=== PATIENT | female | born 2000 | race Caucasian/White ===

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

== ENCOUNTER 2022-09-06 08:13 | Observation (INO) ==
[2022-09-06] MEDS ORDERED: KETOROLAC TROMETHAMINE 15 MG/ML VIAL IV STA (09:50)
[2022-09-06] MEDS ORDERED: ONDANSETRON INJ 2 MG/ML 2 ML VIAL IV STA (09:50)
[2022-09-06] MEDS ORDERED: SODIUM CHLORIDE 0.9% 1000ML 1,000 ML IV STA (09:50)
--- NOTE | 2022-09-06 10:24 | Emergency Department Note ---
History of Present Illness General Chief complaint: Vaginal Pain Stated complaint: IUD DISLODGED Time Seen by Provider: 09/06/22 09:36 History of Present Illness Maximum Pain Intensity: 7 22 year old female who presents to ED today for evaluation of pelvic pain. Patient states this morning she began experiencing sudden lower abdominal pain, right side worse than left, with radiation into her back. She went to the bathroom when her pain started and became very pale, weak, and sweaty feeling like she was going to pass out. She denies syncopal episode. She states the severe pain lasted for about 30 minutes. It has since improved but is still present. She describes the pain as a stabbing. She states she is currently on her period which started yesterday and notes while in bathroom this morning passing multiple quarter size blood clots. This is not normal for her. She is on the Paraguard for the last 2 years. She denies previous complications with it. She gets her period monthly and was on time this month. She reports a history of ovarian cyst when she was younger. She is sexually active. She denies associated fever/chills, n/v, chest pain, SOB, diarrhea/constipation, hematochezia, melena, urinary symptoms. Denies history of kidney stones, gallbladder disease, IBD, diverticulosis. She has never had any abdominal surgeries, she still has her appendix. Home Medications Medication Instructions Recorded Confirmed Type albuterol sulfate 90 mcg/actuation 2 puff inhalation Q4 PRN Shortness 02/26/21 09/06/22 History aerosol inhaler Of Breath Or Wheezing montelukast 10 mg tablet 10 mg PO HS 02/26/21 09/06/22 History omalizumab 75 mg/0.5 mL 75 mg subcut . EVERY 14 DAYS 02/26/21 09/06/22 History subcutaneous syringe (Xolair) sertraline 50 mg tablet (Zoloft) 50 mg PO HS 02/26/21 09/06/22 History fexofenadine 60 mg tablet 60 mg PO QAM 03/24/21 09/06/22 History omalizumab 150 mg/mL subcutaneous 300 mg subcut . EVERY 14 DAYS 09/06/22 09/06/22 History syringe (Xolair) Allergies Allergy/AdvReac Type Severity Reaction Status Date / Time cat dander Allergy Intermediate Sneezing Verified 06/03/21 10:17 dog dander Allergy Intermediate Sneezing Verified 06/03/21 10:17 mold Allergy Intermediate Sneezing Verified 06/03/21 10:17 tree and shrub pollen Allergy Intermediate Sneezing Verified 06/03/21 10:17 latex Allergy Mild Rash and Verified 06/03/21 10:17 swelling at site Past Med/Surg History Medical History (Updated 09/06/22 @ 15:12 by Alicia Weston DO) Acute appendicitis Allergy-induced asthma inhaler prn Peritonsillar cellulitis Surgical History (Updated 09/06/22 @ 16:00 by Alicia Weston DO) History of colonoscopy History of wisdom tooth extraction Hx of tonsillectomy Family History Other Family history non-contributory No family history of adverse response to anesthesia Social History Smoking Status: Never smoker Second Hand Exposure: No; Hx Alcohol Use: Yes (rarely) Hx Substance Use: No Preferred Language: Tuvaluan Communication Ability: Effective Telephoner Required: No Beliefs That Will Affect Care: None Current Living Situation: Other Current Living Situation Comment: lives at school with roommate Feels Safe at Home: Yes Assistive Devices: None Physical Exam Vital Signs Vital Signs - 24 hr 09/06/22 08:25 09/06/22 10:12 09/06/22 12:25 Temperature 36.6 C Temperature Source Temporal Artery Scan Pulse Rate 66 Pulse Rate [Apical] Pulse Rate [Finger] 65 Pulse Rhythm [Apical] Respiratory Rate 20 20 Respiratory Effort / Characteristics Non-Labored Non-Labored Spontaneous Respiratory Depth Normal Normal Respiratory Pattern Blood Pressure 112/67 Blood Pressure [Left Arm] 118/57 L Blood Pressure Mean 82 Blood Pressure Mean [Left Arm] 77 Pulse Oximetry 100 98 99 Oxygen Delivery Method Room Air Room Air Room Air Sepsis Recent Fever Within 48 Hours No Sepsis New/Unexplained Change in Mental Status N/A Sepsis Action Taken by Nursing No Action Required 09/06/22 12:25 09/06/22 13:24 09/06/22 15:07 Temperature Temperature Source Pulse Rate Pulse Rate [Apical] Pulse Rate [Finger] 78 83 68 Pulse Rhythm [Apical] Respiratory Rate 18 18 18 Respiratory Effort / Characteristics Non-Labored Non-Labored Non-Labored Respiratory Depth Normal Normal Normal Respiratory Pattern Regular Regular Regular Blood Pressure Blood Pressure [Left Arm] 97/56 L 114/67 118/68 Blood Pressure Mean Blood Pressure Mean [Left Arm] 69 82 84 Pulse Oximetry 98 99 96 Oxygen Delivery Method Room Air Room Air Room Air Sepsis Recent Fever Within 48 Hours Sepsis New/Unexplained Change in Mental Status Sepsis Action Taken by Nursing 09/06/22 16:14 Temperature 36.8 C Temperature Source Oral Pulse Rate Pulse Rate [Apical] 71 Pulse Rate [Finger] Pulse Rhythm [Apical] Regular Respiratory Rate 16 Respiratory Effort / Characteristics Non-Labored Spontaneous Respiratory Depth Normal Respiratory Pattern Regular Blood Pressure Blood Pressure [Left Arm] 130/65 Blood Pressure Mean Blood Pressure Mean [Left Arm] 86 Pulse Oximetry 99 Oxygen Delivery Method Room Air Sepsis Recent Fever Within 48 Hours Sepsis New/Unexplained Change in Mental Status Sepsis Action Taken by Nursing Constitutional: alert and oriented x3. no acute distress. Respiratory: lungs are clear to auscultation without wheezes, rhonchi, or rales bilaterally. equal chest rise. normal respiratory effort, no accessory muscle use. Cardiovascular: normal heart sounds without murmur. regular rate and rhythm. GI: abdomen is soft, nondistended. Diffuse pelvic tenderness, R >L. nl bowel sounds present throughout. No palpable masses. No rebound tenderness or guarding. No CVA tenderness : Vulva normal appearing without lesions or rashes. Cervix within normal limits, normal vaginal discharge noted without foul odor. No cervical motion tenderness. Bimanual exam normal uterus/ovaries without palpable masses. Psych:appropriate mood and affect. Course Administered Medications Discontinued Medications Sodium Chloride (Nss 1000ml) 1,000 mls @ 999 mls/hr IV .Q1H1M STA Stop: 09/06/22 10:50 Last Infusion: 09/06/22 11:16 Dose: 0 mls/hr Documented By: Admin: 09/06/22 10:07 Dose: 999 mls/hr Documented By: DIAN Cefoxitin Sodium (Mefoxin) 2,000 mg in 60 mls @ 100 mls/hr IV NOW STA Stop: 09/06/22 15:32 Last Infusion: 09/06/22 15:45 Dose: 0 mls/hr Documented By: Admin: 09/06/22 15:07 Dose: 100 mls/hr Documented By: SHERWIN Ioversol (Optiray 350 100ml) 87 ml IV ONCE ONE Stop: 09/06/22 13:18 Last Admin: 09/06/22 13:18 Dose: 87 ml Documented By: GHAZALA Ketorolac Tromethamine (Ketorolac Tromethamine 15 Mg/Ml Vial) 15 mg IV NOW STA Stop: 09/06/22 09:51 Last Admin: 09/06/22 10:07 Dose: 15 mg Documented By: DIAN Ondansetron HCl (Ondansetron Inj 2 Mg/Ml 2 Ml Vial) 4 mg IV NOW STA Stop: 09/06/22 09:51 Last Admin: 09/06/22 10:07 Dose: 4 mg Documented By: DIAN Medical Decision Making Differential Diagnosis Appendicitis, ovarian cyst, ovarian torsion, ectopic , TOA, PID, infections, diverticulitis, UTI, obstruction, mesenteric ischemia, aortic pathology, inflammatory bowel disease, renal colic, PUD, pancreatitis, biliary pathology, hernia, volvulus, constipation, as well as other pathologies. Laboratory Data Attestation: I reviewed the patient's lab results. 09/06/22 09:57 09/06/22 09:57 Lab Results 09/06/22 09/06/22 09/06/22 Range/Units 09:57 09:57 10:14 WBC 11.66 H (4.8-10.8) K/ul RBC 4.70 (4.20-5.40) M/uL Hgb 14.3 (12.0-16.0) g/dl Hct 41.1 (37.0-47.0) % MCV 87.4 (80.0-100.0) fL MCH 30.4 (25.0-34.0) pg MCHC 34.8 (32.0-36.0) g/dL RDW Std Deviation 39.4 (36.4-46.3) fL RDW Coeff of Shira 12.3 (11.5-14.5) % Plt Count 227 (130-400) K/uL MPV 9.8 (9.4-12.4) fL Immature Gran % (Auto) 0.3 % Neut % (Auto) 85.7 % Lymph % (Auto) 6.8 % Reynolds % (Auto) 6.2 % Eos % (Auto) 0.7 % Baso % (Auto) 0.3 % Neut # (Auto) 10.00 H (1.40-6.50) K/uL Lymph # (Auto) 0.79 L (1.2-3.4) K/uL Reynolds # (Auto) 0.72 H (0.11-0.59) K/uL Eos # (Auto) 0.08 (0-0.50) K/uL Baso # (Auto) 0.04 (0-0.2) K/uL Immature Gran # (Auto) 0.03 (0.01-0.20) K/uL Sodium 138 (136-145) mmol/L Potassium 4.2 (3.5-5.1) mmol/L Chloride 107 (98-107) mmol/L Carbon Dioxide 25 (21-32) mmol/L Anion Gap 6 (3-11) BUN 10 (6-23) mg/dl Creatinine 0.65 (0.6-1.2) mg/dl Est Cr Clr Drug Dosing 110.5 ml/min Est GFR ( Amer) 148.1 ml/min Est GFR (Non-Af Amer) 127.8 ml/min BUN/Creatinine Ratio 15.4 (10-20) Glucose 102 H (70-99(Fasting)) mg/dl Calcium 9.3 (8.6-10.3) mg/dl Total Bilirubin 0.4 (0.2-1.0) mg/dl AST 17 (13-39) U/L ALT 12 (7-52) U/L Alkaline Phosphatase 57 (34-104) U/L Total Protein 6.9 (6.0-8.3) gm/dl Albumin 4.4 (3.4-5.0) gm/dl Globulin 2.5 (2.5-4.0) gm/dl Albumin/Globulin Ratio 1.8 (0.9-2) Lipase 19 (11-82) U/L Urine Color Yellow Urine Appearance Clear (Clear) Urine pH 7.0 (4.5-7.5) Ur Specific [place] 1.020 (1.000-1.030) Urine Protein Negative (Negative) Urine Glucose (UA) Negative (Negative) Urine Ketones Negative (Negative) Urine Blood 2+ H (Negative) Urine Nitrite Negative (Negative) Urine Bilirubin Negative (Negative) Urine Urobilinogen Negative (Negative) Ur Leukocyte Esterase Negative (Negative) Urine RBC 0-4 (0-4) /hpf Urine WBC 0-5 (0-5) /hpf Ur Epithelial Cells 20-30 H (0-5) /lpf Urine Bacteria Negative (Negative) POC Ur Test (NEG) 09/06/22 Range/Units 10:19 WBC (4.8-10.8) K/ul RBC (4.20-5.40) M/uL Hgb (12.0-16.0) g/dl Hct (37.0-47.0) % MCV (80.0-100.0) fL MCH (25.0-34.0) pg MCHC (32.0-36.0) g/dL RDW Std Deviation (36.4-46.3) fL RDW Coeff of Shira (11.5-14.5) % Plt Count (130-400) K/uL MPV (9.4-12.4) fL Immature Gran % (Auto) % Neut % (Auto) % Lymph % (Auto) % Reynolds % (Auto) % Eos % (Auto) % Baso % (Auto) % Neut # (Auto) (1.40-6.50) K/uL Lymph # (Auto) (1.2-3.4) K/uL Reynolds # (Auto) (0.11-0.59) K/uL Eos # (Auto) (0-0.50) K/uL Baso # (Auto) (0-0.2) K/uL Immature Gran # (Auto) (0.01-0.20) K/uL Sodium (136-145) mmol/L Potassium (3.5-5.1) mmol/L Chloride (98-107) mmol/L Carbon Dioxide (21-32) mmol/L Anion Gap (3-11) BUN (6-23) mg/dl Creatinine (0.6-1.2) mg/dl Est Cr Clr Drug Dosing ml/min Est GFR ( Amer) ml/min Est GFR (Non-Af Amer) ml/min BUN/Creatinine Ratio (10-20) Glucose (70-99(Fasting)) mg/dl Calcium (8.6-10.3) mg/dl Total Bilirubin (0.2-1.0) mg/dl AST (13-39) U/L ALT (7-52) U/L Alkaline Phosphatase (34-104) U/L Total Protein (6.0-8.3) gm/dl Albumin (3.4-5.0) gm/dl Globulin (2.5-4.0) gm/dl Albumin/Globulin Ratio (0.9-2) Lipase (11-82) U/L Urine Color Urine Appearance (Clear) Urine pH (4.5-7.5) Ur Specific [place] (1.000-1.030) Urine Protein (Negative) Urine Glucose (UA) (Negative) Urine Ketones (Negative) Urine Blood (Negative) Urine Nitrite (Negative) Urine Bilirubin (Negative) Urine Urobilinogen (Negative) Ur Leukocyte Esterase (Negative) Urine RBC (0-4) /hpf Urine WBC (0-5) /hpf Ur Epithelial Cells (0-5) /lpf Urine Bacteria (Negative) POC Ur Test NEG (NEG) Imaging Data Radiologist's Impression: Pelvis Ultrasound 09/06/22 09:50 US pelvic complete CLINICAL HISTORY: right pelvic pain h/o ovarian cyst TECHNIQUE: Real-time sonographic images of the pelvic contents were obtained with transabdominal and transvaginal technique. Comparison: None available at the time of this dictation. FINDINGS: The uterus measures 9.5 x 2.9 x 1.6 cm. The endometrial cavity echo stripe measures 0.5 cm in thickness. Intrauterine device is low lying in the cervix. The right ovary measures 5.2 x 1.5 x 3.8 cm. The left ovary measures 4.2 x 1.7 x 1.4 cm. Normal appearance of the ovaries bilaterally. There was no fluid in the cul-de-sac. IMPRESSION: Low-lying IUD which appears well-positioned. No ovarian abnormalities are seen. ACT 112: Negative or not required by law. Electronically signed by: Yannick Graves M.D. 09/06/2022 12:25 PM Transvaginal US 09/06/22 09:50 US pelvic complete CLINICAL HISTORY: right pelvic pain h/o ovarian cyst TECHNIQUE: Real-time sonographic images of the pelvic contents were obtained with transabdominal and transvaginal technique. Comparison: None available at the time of this dictation. FINDINGS: The uterus measures 9.5 x 2.9 x 1.6 cm. The endometrial cavity echo stripe measures 0.5 cm in thickness. Intrauterine device is low lying in the cervix. The right ovary measures 5.2 x 1.5 x 3.8 cm. The left ovary measures 4.2 x 1.7 x 1.4 cm. Normal appearance of the ovaries bilaterally. There was no fluid in the cul-de-sac. IMPRESSION: Low-lying IUD which appears well-positioned. No ovarian abnormalities are seen. ACT 112: Negative or not required by law. Electronically signed by: Yannick Graves M.D. 09/06/2022 12:25 PM Appendix Ultrasound 09/06/22 09:52 ULTRASOUND OF THE APPENDIX CLINICAL HISTORY: Right lower quadrant abdominal pain. COMPARISON STUDY: No priors. FINDINGS: Real-time, grayscale, and color flow sonography of the right lower quadrant was performed to assess for acute appendicitis. The appendix was not discretely visualized. No inflammatory changes or free fluid are seen in the right lower quadrant. No lymphadenopathy was seen. IMPRESSION: Nonvisualization of the appendix. Note that this does not exclude acute appendicitis. ACT 112: Negative or not required by law. Electronically signed by: David Sanon M.D. 09/06/2022 12:10 PM Abdomen/Pelvis CT 09/06/22 12:47 CT SCAN OF THE ABDOMEN AND PELVIS WITH IV CONTRAST CLINICAL HISTORY: Right lower quadrant abdominal pain. COMPARISON STUDY: Ultrasound of the pelvis and right lower quadrant performed the same day 09/06/2022. TECHNIQUE: Following the IV administration of 87 cc of Optiray 350, CT scan of the abdomen and pelvis is performed from the lung bases to the proximal femora. Images are reviewed in the axial, sagittal, and coronal planes. IV contrast was administered without complication. Note that the examination is suboptimal without enteric contrast. A dose lowering technique was utilized adhering to the principles of ALARA. CT DOSE: 266.36 mGy.cm FINDINGS: Lung bases: The heart is normal in size and without pericardial effusion. The lung bases are clear. Liver: The contrast-enhanced liver is normal in size, contour, and attenuation. There is no intrahepatic biliary ductal dilatation. The hepatic veins and portal veins are patent. Gallbladder: Unremarkable. Spleen: Normal in size and attenuation. Pancreas: Unremarkable. Adrenal glands: Unremarkable. Kidneys: The contrast enhanced kidneys are normal in size and without hy dronephrosis. The kidneys enhance symmetrically. Abdominal vasculature: The abdominal aorta is normal in course and caliber. Bowel: There is no bowel obstruction. The appendix is best seen anterior to the sacrum on axial image #[id number]. This contains hyperdense intraluminal debris and is mildly distended measuring up to 7 mm. The wall is top normal in thickness. No surrounding inflammation is clearly identified. There is no gas within the appendiceal lumen. Peritoneum: There is no intraperitoneal free air or abdominal ascites. There is a small fat-containing umbilical hernia. A navel piercing is in place. Lymphadenopathy: None. Pelvic viscera: The bladder is normal in appearance. The uterus is normal as visualized. An intrauterine device is largely located within the cervix. There are bilateral ovarian follicles. A moderate volume of free fluid is seen in the cul-de-sac. Skeletal structures: No lytic or blastic lesions are seen. IMPRESSION: 1. The appendix is mildly distended and contains hyperdense intraluminal debris which could represent appendicoliths. No significant surrounding inflammation is seen. A very mild acute appendicitis is not excluded. Clinical and laboratory correlation will be essential. 2. Free fluid in the cul-de-sac is nonspecific and likely physiologic. 3. An intrauterine device is in place. This is largely located within the cervix. 4. Additional findings as above. ACT 112: Negative or not required by law. Electronically signed by: David Sanon M.D. 09/06/2022 1:45 PM MDM Narrative 22-year-old female who presents to the emergency department for evaluation of pelvic pain. Review of pertinent visits and past medical history performed. Vital signs in ED within normal limits, afebrile. IV access was established and labs were obtained. CBC demonstrates mild leukocytosis at 11.6 with left shift. No anemia. CMP demonstrates no significant electrolyte abnormalities, renal function within normal limits. LFTs and lipase unremarkable. Urinalysis wit hout evidence of infection. There is +2 blood however likely contamination from menses. Given presentation, pelvic as well as appendix ultrasound were performed. Pelvic ultrasound was unremarkable. No evidence of ovarian cyst, ovarian torsion, ectopic . It notes a IUD in good position. Appendix ultrasound was unfortunately nondiagnostic. Clinically, patient is nontoxic- appearing in no acute distress. She is point tender over the right lower quadrant at McBurney's point. She was treated with IV Toradol, Zofran, 1 L IV fluids. Upon reevaluation, patient remained stable with no new concerns. She was updated on all exam findings and test results. Given negative pelvic ultrasound as well as nondiagnostic appendix ultrasound with a mildly elevated white count, we discussed need to rule out appendicitis with CT scan. Patient and mother verbalized understanding and is agreeable. A CT abdomen/pelvis with contrast was performed.This was personally reviewed as well as interpreted by radiology and demonstrates a mildly distended appendix measuring 7 mm with intraluminal debris. No significant surrounding inflammation. Given findings, case was discussed with on-call general surgeon, Dr. Howard, who reviewed imaging and evaluated patient at bedside and is recommending surgical intervention with appendectomy for acute appendicitis. Please see his note for further details. She was given 1 dose IV cefoxitin for preoperative surgical prophylaxis per Dr. Howard's request. Patient will be admitted to Dr. Howard's service following surgery. Patient was taken to the preop in stable condition. Impression & Plan Acute right lower quadrant pain, Acute appendicitis Discharge Plan Visit Data Chief Complaint: Vaginal Pain Stated Complaint: IUD DISLODGED ED Provider: Jose A Arenas ED Midlevel Provider: Jeannine Poole Discharge Problem: Acute right lower quadrant pain, Acute appendicitis Patient Disposition: Being Evaluated by Surgeon Discharge Instructions Interventions: ED Discharge Assessment Last Done: 09/06/22 15:52 Forms Stand Alone Forms: [email or web address] [facility] Prescriptions Prescriptions: No Action Xolair 150 mg/mL syringe 300 mg SUBCUT . EVERY 14 DAYS Rx Instructions: take on tuesdays montelukast 10 mg tablet 10 mg PO HS albuterol sulfate 90 mcg/actuation HFA aerosol inhaler 2 puff INHALATION Q4 PRN (Reason: Shortness Of Breath Or Wheezing) Xolair 75 mg/0.5 mL syringe 75 mg SUBCUT . EVERY 14 DAYS Rx Instructions: TAKE ON tuesday sertraline [Zoloft] 50 mg tablet 50 mg PO HS fexofenadine 60 mg Tablet 60 mg PO QAM Referrals Referrals: PCP,NO [Primary Care Provider] -
[2022-09-06 10:26] LABS: Basophils # (auto) 0.04 K/uL (0-0.2); Basophils % (auto) 0.3 %; Eosinophils # (auto) 0.08 K/uL (0-0.50); Eosinophils % (auto) 0.7 %; Hematocrit (blood only) 41.1 % (37.0-47.0); Hemoglobin 14.3 g/dl (12.0-16.0); Immature Granulocytes # (auto) 0.03 K/uL (0.01-0.20); Immature Granulocytes % (auto) 0.3 %; Lymphocytes # (auto) 0.79 K/uL (1.2-3.4); Lymphocytes % (auto) 6.8 %; Mean Corpuscular Hemoglobin 30.4 pg (25.0-34.0); Mean Corpuscular Hgb Conc 34.8 g/dL (32.0-36.0); Mean Corpuscular Volume 87.4 fL (80.0-100.0); Mean Platelet Volume 9.8 fL (9.4-12.4); Monocytes # (auto) 0.72 K/uL (0.11-0.59); Monocytes % (auto) 6.2 %; Neutrophils % (auto) 85.7 %; Platelet Count 227 K/uL (130-400); RDW Coefficient of Variation 12.3 % (11.5-14.5); RDW Standard Deviation 39.4 fL (36.4-46.3); White Blood Count 11.66 K/ul (4.8-10.8)
[2022-09-06 10:31] LABS: Appearance Urine Clear (Clear); Bilirubin Urine Negative (Negative); Blood Urine 2+ (Negative); Color Urine Yellow; Glucose Urine UA Negative (Negative); Ketones Urine Negative (Negative); Leukocyte Esterase Urine Negative (Negative); Nitrite Urine Negative (Negative); Protein Urine Negative (Negative); Urobilinogen Urine Negative (Negative)
[2022-09-06 10:42] LABS: Albumin Globulin Ratio 1.8 (0.9-2); Albumin Level 4.4 gm/dl (3.4-5.0); BUN Creatinine Ratio 15.4 (10-20); Bilirubin,Total 0.4 mg/dl (0.2-1.0); Calcium 9.3 mg/dl (8.6-10.3); Creatinine Clr Calc Pharmacy 110.5 ml/min; Est GFR (African American) 148.1 ml/min; Est GFR (Non-African American) 127.8 ml/min; Globulin 2.5 gm/dl (2.5-4.0); Potassium 4.2 mmol/L (3.5-5.1); Total Protein 6.9 gm/dl (6.0-8.3)
[2022-09-06 10:52] LABS: Bacteria Urine Negative (Negative); Epithelial Cell Urine 20-30 /lpf (0-5); RBC Urine 0-4 /hpf (0-4); WBC Urine 0-5 /hpf (0-5)
--- NOTE | 2022-09-06 12:11 | Ultrasound Report ---
ULTRASOUND OF THE APPENDIX CLINICAL HISTORY: Right lower quadrant abdominal pain. COMPARISON STUDY: No priors. FINDINGS: Real-time, grayscale, and color flow sonography of the right lower quadrant was performed t o assess for acute appendicitis. The appendix was not discretely visualized. No inflammatory changes or free fluid are seen in the right lower quadrant. No lymphadenopathy was seen. IMPRESSION: Nonvisualization of the appendix. Note that this does not exclude acute appendicitis. ACT 112: Negative or not required by law. Electronically signed by: David Sanon M.D. 09/06/2022 12:10 PM
--- NOTE | 2022-09-06 12:26 | Ultrasound Report ---
US pelvic complete CLINICAL HISTORY: right pelvic pain h/o ovarian cyst TECHNIQUE: Real-time sonographic images of the pelvic contents were obtained with transabdominal and transvaginal technique. Comparison: None available at the time of this dictation. FINDINGS: The uterus measures 9.5 x 2.9 x 1.6 cm. The endometrial cavity echo stripe measures 0.5 cm in thickne ss. Intrauterine device is low lying in the cervix. The right ovary measures 5.2 x 1.5 x 3.8 cm. The left ovary measures 4.2 x 1.7 x 1.4 cm. Normal appea myriam of the ovaries bilaterally. There was no fluid in the cul-de-sac. IMPRESSION: Low-lying IUD which appears well-positioned. No ovarian abnormalities are seen. ACT 112: Negative or not required by law. Electronically signed by: Yannick Graves M.D. 09/06/2022 12:25 PM
[2022-09-06] MEDS ORDERED: OPTIRAY 350 100ml IV ONE (13:17)
--- NOTE | 2022-09-06 13:46 | CT Scan Report ---
CT SCAN OF THE ABDOMEN AND PELVIS WITH IV CONTRAST CLINICAL HISTORY: Right lower quadrant abdominal pain. COMPARISON STUDY: Ultrasound of the pelvis and right lower quadrant performed the same day 09/06/2022 . TECHNIQUE: Following the IV administration of 87 cc of Optiray 350, CT scan of the abdomen and pelvi s is performed from the lung bases to the proximal femora. Images are reviewed in the axial, sagittal , and coronal planes. IV contrast was administered without complication. Note that the examination is suboptimal without enteric contrast. A dose lowering technique was utilized adhering to the principl es of VIDAL. CT DOSE: 266.36 mGy.cm FINDINGS: Lung bases: The heart is normal in size and without pericardial effusion. The lung bases are clear. Liver: The contrast-enhanced liver is normal in size, contour, and attenuation. There is no intrahepa tic biliary ductal dilatation. The hepatic veins and portal veins are patent. Gallbladder: Unremarkable. Spleen: Normal in size and attenuation. Pancreas: Unremarkable. Adrenal glands: Unremarkable. Kidneys: The contrast enhanced kidneys are normal in size and without hydronephrosis. The kidneys enh ance symmetrically. Abdominal vasculature: The abdominal aorta is normal in course and caliber. Bowel: There is no bowel obstruction. The appendix is best seen anterior to the sacrum on axial imag e #[id number]. This contains hyperdense intraluminal debris and is mildly distended measuring up to 7 mm. Th e wall is top normal in thickness. No surrounding inflammation is clearly identified. There is no gas within the appendiceal lumen. Peritoneum: There is no intraperitoneal free air or abdominal ascites. There is a small fat-containin g umbilical hernia. A navel piercing is in place. Lymphadenopathy: None. Pelvic viscera: The bladder is normal in appearance. The uterus is normal as visualized. An intrauter ine device is largely located within the cervix. There are bilateral ovarian follicles. A moderate vo lume of free fluid is seen in the cul-de-sac. Skeletal structures: No lytic or blastic lesions are seen. IMPRESSION: 1. The appendix is mildly distended and contains hyperdense intraluminal debris which could represent appendicoliths. No significant surrounding inflammation is seen. A very mild acute appendicitis is n ot excluded. Clinical and laboratory correlation will be essential. 2. Free fluid in the cul-de-sac is nonspecific and likely physiologic. 3. An intrauterine device is in place. This is largely located within the cervix. 4. Additional findings as above. ACT 112: Negative or not required by law. Electronically signed by: David Sanon M.D. 09/06/2022 1:45 PM
[2022-09-06] MEDS ORDERED: cefOXitin 2,000 MG/60 ML BAG IV STA (14:57)
[2022-09-06] MEDS ORDERED: ATROPINE SULFATE 0.1 MG/ML 10ML SYR IV PRN (15:13)
[2022-09-06] MEDS ORDERED: fentaNYL citrate PF 100 MCG/2 ML VIAL IV PRN (15:13)
[2022-09-06] MEDS ORDERED: ALBUTEROL 0.083% NEBU SOLN 3 ML VIAL INH PRN (15:13)
[2022-09-06] MEDS ORDERED: ONDANSETRON INJ 2 MG/ML 2 ML VIAL IV PRN ×2 (15:13→20:01)
[2022-09-06] MEDS ORDERED: MEPERIDINE HCL 25 MG/ML CARP/VIAL IV PRN (15:13)
[2022-09-06] MEDS ORDERED: ePHEDrine sulfate 50 MG/ML AMP IV PRN (15:13)
[2022-09-06] MEDS ORDERED: MoRPHine SULFATE 10 MG/ML CARP/VIAL IV PRN (15:13)
--- NOTE | 2022-09-06 15:13 | Anesthesiology Consultation ---
Date of Service September 06, 2022 Assessment & Plan Chart Review Chart Review: Acceptable Risk for Surgery Consults Requested none ASA ASA2 Proposed Anesthesia Anesthesia Type: General Risk / Benefits Reviewed With: PT / POA / Parent / Guardian, Accepts Plan and Informed Consent Obtained Additional Comments: pt with multiple piercings ears and nipples bl, advised of risks to leave in. taped. pt signed jewelry waiver History Surgery Operation Date: 09/06/22 11:10 Proposed Procedures p Laparoscopic Appendectomy - Zoë Howard MD Height/Weight Height: 5 ft 6 in Weight: 50.7 kg Allergies Allergy/AdvReac Type Severity Reaction Status Date / Time cat dander Allergy Intermediate Sneezing Verified 06/03/21 10:17 dog dander Allergy Intermediate Sneezing Verified 06/03/21 10:17 mold Allergy Intermediate Sneezing Verified 06/03/21 10:17 tree and shrub pollen Allergy Intermediate Sneezing Verified 06/03/21 10:17 latex Allergy Mild Rash and Verified 06/03/21 10:17 swelling at site Medications Home Medications Medication Instructions Recorded Confirmed Last Taken albuterol sulfate 90 mcg/actuation 2 puff inhalation Q4 PRN Shortness 02/26/21 09/06/22 Unknown aerosol inhaler Of Breath Or Wheezing montelukast 10 mg tablet 10 mg PO HS 02/26/21 09/06/22 05/06/21 omalizumab 75 mg/0.5 mL 75 mg subcut . EVERY 14 DAYS 02/26/21 09/06/22 04/28/21 subcutaneous syringe (Xolair) sertraline 50 mg tablet (Zoloft) 50 mg PO HS 02/26/21 09/06/22 05/06/21 fexofenadine 60 mg tablet 60 mg PO QAM 03/24/21 09/06/22 05/06/21 omalizumab 150 mg/mL subcutaneous 300 mg subcut . EVERY 14 DAYS 09/06/22 09/06/22 Unknown syringe (Xolair) NPO Date Last Intake of Fluids: 09/05/22 Time Last Intake of Fluids: 21:00 Date Last Intake of Solids: 09/05/22 Time Last Intake of Solids: 21:00 Past Medical History Medical History (Updated 09/06/22 @ 15:12 by Alicia Weston DO) Acute appendicitis Allergy-induced asthma inhaler prn Peritonsillar cellulitis Exercise / Class Metabolic Activity 1 > 8 Run/Swim/Ski/Tennis Past Family History Family History Other Family history non-contributory No family history of adverse response to anesthesia Past Surgical History Surgical History (Updated 09/06/22 @ 16:00 by Alicia Weston DO) History of colonoscopy History of wisdom tooth extraction Hx of tonsillectomy Past Anesthesia History No Hx of Anesthesia Complications and No Family Hx of Anesthesia Complications History of PONV No Hx of PONV and No Hx of Motion Sickness Social History Smoking Status: Never smoker Hx Alcohol Use: Yes (rarely) alcohol intake frequency: holidays/special occasions only Hx Substance Use: No substance use type: does not use Physical Exam Vital Signs Last Vital Signs Temp 36.6 C 09/06/22 08:25 Pulse 68 09/06/22 15:07 Resp 18 09/06/22 15:07 BP 118/68 09/06/22 15:07 Pulse Ox 96 09/06/22 15:07 O2 Del Method Room Air 09/06/22 15:07 ENMT Mouth: no TMJ abnormality Thyromental Distance: > or= 3.5 Finger Breadths Mallampati Class: II Neck normal visual inspection and trachea midline; neck extension not limited Respiratory normal respiratory effort Auscultation: lungs clear to auscultation bilaterally Cardiovascular Rate/Rhythm: regular rate and regular rhythm Heart Sounds: no murmur Musculoskeletal Spine: normal cervical ROM Extremities: full ROM of extremities Neurologic moves all extremities Psychiatric Orientation: alert and oriented x 3 Testing Laboratory Results 09/06/22 09:57 09/06/22 09:57 Urine Color Yellow 09/06/22 10:14 Urine Appearance Clear (Clear) 09/06/22 10:14 Urine pH 7.0 (4.5-7.5) 09/06/22 10:14 Ur Specific [place] 1.020 (1.000-1.030) 09/06/22 10:14 Urine Protein Negative (Negative) 09/06/22 10:14 Urine Glucose (UA) Negative (Negative) 09/06/22 10:14 Urine Ketones Negative (Negative) 09/06/22 10:14 Urine Nitrite Negative (Negative) 09/06/22 10:14 Ur Leukocyte Esterase Negative (Negative) 09/06/22 10:14 Urine RBC 0-4 /hpf (0-4) 09/06/22 10:14 Urine WBC 0-5 /hpf (0-5) 09/06/22 10:14 Ur Epithelial Cells 20-30 /lpf (0-5) H 09/06/22 10:14 09/06/22 10:19 POC Ur Test NEG
--- NOTE | 2022-09-06 15:16 | Surgery Consultation ---
Date of Consultation September 06, 2022 Assessment & Plan (1) Acute appendicitis: pt is a 22 year-old female who presents with 10 hours history lower and RLQ pain, IMP: RLQ pain, acute appendicitis, plan, base pt's H/P, albs and CT scan finding, I recommend to do laparoscopic appendectomy, possible open, D/W benefits, risks and alternatives of the surgery, the risks - infection, bleeding, injury other organs, abscess, negative appendicitis, still need do appendectomy, prevent confusion diagnosis next time, pt and her mother understood, they agreed with surgery, pt signed informed consent, I answered all questions, pre-op iv antibiotic, History of Present Illness Reason for Consultation: appendicitis Requesting Physician: Jose A Arenas MD History of Present Illness Chief complaint: Vaginal Pain Stated complaint: IUD DISLODGED Time Seen by Provider: 09/06/22 09:36 History of Present Illness Maximum Pain Intensity: 7 22 year old female who presents to ED today for evaluation of pelvic pain. Patient states this morning she began experiencing sudden lower abdominal pain, right side worse than left, with radiation into her back. She went to the bathroom when her pain started and became very pale, weak, and sweaty feeling like she was going to pass out. She denies syncopal episode. She states the severe pain lasted for about 30 minutes. It has since improved but is still present. She describes the pain as a stabbing. She states she is currently on her period which started yesterday and notes while in bathroom this morning passing multiple quarter size blood clots. This is not normal for her. She is on the Paraguard for the last 2 years. She denies previous complications with it. She gets her period monthly and was on time this month. She reports a history of ovarian cyst when she was younger. She is sexually active. She denies associated fever/chills, n/v, chest pain, SOB, diarrhea/constipation, hematochezia, melena, urinary symptoms. Denies history of kidney stones, gallbladder disease, IBD, diverticulosis. She has never had any abdominal surgeries, she still has her appendix. I ( Zoë Howard MD ) got a call for consult appendicitis, I reviewed pt's H/P, labs and CT scan, U/S study with pt and her mother, pt said the most pain locate at RLQ area, no pain on left side abdomen, pt denies fever, no diarrhea, Home Medications Medication Instructions Recorded Confirmed Type albuterol sulfate 90 mcg/actuation 2 puff inhalation Q4 PRN Shortness 02/26/21 06/03/21 History aerosol inhaler Of Breath Or Wheezing montelukast 10 mg tablet 10 mg PO HS 02/26/21 06/03/21 History omalizumab 75 mg/0.5 mL 75 mg subcut . EVERY 2 WEEKS 02/26/21 06/03/21 History subcutaneous syringe (Xolair) sertraline 50 mg tablet (Zoloft) 50 mg PO HS 02/26/21 06/03/21 History tretinoin 0.025 % topical cream 1 applic topical HS 02/26/21 06/03/21 History fexofenadine 60 mg tablet 60 mg PO QAM 03/24/21 06/03/21 History nitrofurantoin 100 mg PO HS 05/01/21 06/03/21 History monohydrate/macrocrystals 100 mg capsule (Macrobid) hydrocodone 5 mg-acetaminophen 325 1 tab PO Q4H PRN pain #20 tabs 05/07/21 06/03/21 Rx mg tablet hydrocodone 7.5 mg-acetaminophen 15 ml PO Q6H PRN pain #400 mL 05/08/21 06/03/21 Rx 325 mg/15 mL oral solution amoxicillin 600 mg-potassium 5 ml PO BID 10 days #100 mL 05/12/21 06/03/21 Rx clavulanate 42.9 mg/5 mL oral suspension (Augmentin ES-) Allergies C Allergy/AdvReac Type Severity Reaction Status Date / Time cat dander Allergy Intermediate Sneezing Verified 06/03/21 10:17 dog dander Allergy Intermediate Sneezing Verified 06/03/21 10:17 mold Allergy Intermediate Sneezing Verified 06/03/21 10:17 tree and shrub pollen Allergy Intermediate Sneezing Verified 06/03/21 10:17 latex Allergy Mild Rash and Verified 06/03/21 10:17 swelling at site Past Med/Surg History Medical History Allergy-induced asthma inhaler prnPeritonsillar cellulitis Surgical History History of colonoscopy History of wisdom tooth extraction Family History Other Family history non-contributory No family history of adverse response to anesthesia Social History Smoking Status: Never smoker Second Hand Exposure: No; Hx Alcohol Use: Yes (rarely) Hx Substance Use: No Preferred Language: [place] Communication Ability: Effective Automatic Print Developer Required: No Beliefs That Will Affect Care: None Current Living Situation: Other Current Living Situation Comment: lives at school with roommate Feels Safe at Home: Yes Assistive Devices: None Allergies Allergy/AdvReac Type Severity Reaction Status Date / Time cat dander Allergy Intermediate Sneezing Verified 06/03/21 10:17 dog dander Allergy Intermediate Sneezing Verified 06/03/21 10:17 mold Allergy Intermediate Sneezing Verified 06/03/21 10:17 tree and shrub pollen Allergy Intermediate Sneezing Verified 06/03/21 10:17 latex Allergy Mild Rash and Verified 06/03/21 10:17 swelling at site Home Medications Medication Instructions Recorded Confirmed Type albuterol sulfate 90 mcg/actuation 2 puff inhalation Q4 PRN Shortness 02/26/21 06/03/21 History aerosol inhaler Of Breath Or Wheezing montelukast 10 mg tablet 10 mg PO HS 02/26/21 06/03/21 History omalizumab 75 mg/0.5 mL 75 mg subcut . EVERY 2 WEEKS 02/26/21 06/03/21 History subcutaneous syringe (Xolair) sertraline 50 mg tablet (Zoloft) 50 mg PO HS 02/26/21 06/03/21 History tretinoin 0.025 % topical cream 1 applic topical HS 02/26/21 06/03/21 History fexofenadine 60 mg tablet 60 mg PO QAM 03/24/21 06/03/21 History nitrofurantoin 100 mg PO HS 05/01/21 06/03/21 History monohydrate/macrocrystals 100 mg capsule (Macrobid) hydrocodone 5 mg-acetaminophen 325 1 tab PO Q4H PRN pain #20 tabs 05/07/21 06/03/21 Rx mg tablet hydrocodone 7.5 mg-acetaminophen 15 ml PO Q6H PRN pain #400 mL 05/08/21 06/03/21 Rx 325 mg/15 mL oral solution amoxicillin 600 mg-potassium 5 ml PO BID 10 days #100 mL 05/12/21 06/03/21 Rx clavulanate 42.9 mg/5 mL oral suspension (Augmentin ES-) Patient History Medical History Allergy-induced asthma inhaler prn Peritonsillar cellulitis Surgical History History of colonoscopy History of wisdom tooth extraction Family History Other Family history non-contributory No family history of adverse response to anesthesia Social History Smoking Status: Never smoker Second Hand Exposure: No; Hx Alcohol Use: Yes (rarely) Hx Substance Use: No Preferred Language: [place] Communication Ability: Effective Automatic Print Developer Required: No Beliefs That Will Affect Care: None Current Living Situation: Other Current Living Situation Comment: lives at school with roommate Feels Safe at Home: Yes Assistive Devices: None Review of Systems Constitutional: as per Subjective / HPI Eyes: as per Subjective / HPI Respiratory: as per Subjective / HPI Cardiovascular: as per Subjective / HPI Gastrointestinal: as per Subjective / HPI Genitourinary: as per Subjective / HPI Neurologic: as per Subjective / HPI Psychiatric: as per Subjective / HPI Endocrine: as per Subjective / HPI Hematologic / Lymphatic: as per Subjective / HPI Physical Exam Constitutional: WD/WN, vitals as above no distress, HR 88, Eyes: PERRL, conjunctivae normal, anicteric sclerae Neck: trachea midline, no thyromegaly Respiratory: normal respiratory effort, lungs clear to auscultation Cardiovascular: RRR, no murmur, no edema Gastrointestinal (Abdomen): soft, tenderness at RLQ, rebound pain +, no distend, BS +, Musculoskeletal: no cyanosis or clubbing, extremities motor strength 5/5 Neurologic: patellar DTR's 2+ bilat, sensation intact Psychiatric: A+Ox3, euthymic affect Results & Data Vital Signs (Past 12 Hours) Vital Signs Temp Pulse Pulse Resp BP BP Pulse Ox 09/06/22 15:07 68 18 118/68 96 09/06/22 13:24 83 18 114/67 99 09/06/22 12:25 78 18 97/56 L 98 09/06/22 12:25 99 09/06/22 10:12 65 20 118/57 L 98 09/06/22 08:25 36.6 C 66 20 112/67 100 O2 Del Method 09/06/22 15:07 Room Air 09/06/22 13:24 Room Air 09/06/22 12:25 Room Air 09/06/22 12:25 Room Air 09/06/22 10:12 Room Air 09/06/22 08:25 Room Air Laboratory Results Abnormal lab results 09/06/22 09/06/22 09/06/22 Range/Units 09:57 09:57 10:14 WBC 11.66 H (4.8-10.8) K/ul Neut # (Auto) 10.00 H (1.40-6.50) K/uL Lymph # (Auto) 0.79 L (1.2-3.4) K/uL [place] # (Auto) 0.72 H (0.11-0.59) K/uL Glucose 102 H (70-99(Fasting)) mg/dl Urine Blood 2+ H (Negative) Ur Epithelial Cells 20-30 H (0-5) /lpf Diagnostic Findings CT SCAN OF THE ABDOMEN AND PELVIS WITH IV CONTRAST CLINICAL HISTORY: Right lower quadrant abdominal pain. COMPARISON STUDY: Ultrasound of the pelvis and right lower quadrant performed the same day 09/06/2022. TECHNIQUE: Following the IV administration of 87 cc of Optiray 350, CT scan of the abdomen and pelvis is performed from the lung bases to the proximal femora. Images are reviewed in the axial, sagittal, and coronal planes. IV contrast was administered without complication. Note that the examination is suboptimal without enteric contrast. A dose lowering technique was utilized adhering to the principles of ALARA. CT DOSE: 266.36 mGy.cm FINDINGS: Lung bases: The heart is normal in size and without pericardial effusion. The lung bases are clear. Liver: The contrast-enhanced liver is normal in size, contour, and attenuation. There is no intrahepatic biliary ductal dilatation. The hepatic veins and portal veins are patent. Gallbladder: Unremarkable. Spleen: Normal in size and attenuation. Pancreas: Unremarkable. Adrenal glands: Unremarkable. Kidneys: The contrast enhanced kidneys are normal in size and without hydronephrosis. The kidneys enhance symmetrically. Abdominal vasculature: The abdominal aorta is normal in course and caliber. Bowel: There is no bowel obstruction. The appendix is best seen anterior to the sacrum on axial image #278. This contains hyperdense intraluminal debris and is mildly distended measuring up to 7 mm. The wall is top normal in thickness. No surrounding inflammation is clearly identified. There is no gas within the appendiceal lumen. Peritoneum: There is no intraperitoneal free air or abdominal ascites. There is a small fat-containing umbilical hernia. A navel piercing is in place. Lymphadenopathy: None. Pelvic viscera: The bladder is normal in appearance. The uterus is normal as visualized. An intrauterine device is largely located within the cervix. There are bilateral ovarian follicles. A moderate volume of free fluid is seen in the cul-de-sac. Skeletal structures: No lytic or blastic lesions are seen. IMPRESSION: 1. The appendix is mildly distended and contains hyperdense intraluminal debris which could represent appendicoliths. No significant surrounding inflammation is seen. A very mild acute appendicitis is not excluded. Clinical and laboratory correlation will be essential. 2. Free fluid in the cul-de-sac is nonspecific and likely physiologic. 3. An intrauterine device is in place. This is largely located within the cervix. 4. Additional findings as above. ULTRASOUND OF THE APPENDIX CLINICAL HISTORY: Right lower quadrant abdominal pain. COMPARISON STUDY: No priors. FINDINGS: Real-time, grayscale, and color flow sonography of the right lower quadrant was performed to assess for acute appendicitis. The appendix was not discretely visualized. No inflammatory changes or free fluid are seen in the right lower quadrant. No lymphadenopathy was seen. IMPRESSION: Nonvisualization of the appendix. Note that this does not exclude acute appendicitis. ACT 112: Negative or not required by law.
--- NOTE | 2022-09-06 15:26 | History & Physical Bridge Note ---
Date of Service September 06, 2022 History & Physical Bridge Note I have examined the patient, reviewed the History & Physical and in the interval since the performance of the History & Physical I have noted the following changes of clinical significance: no changes noted
[2022-09-06] MEDS ORDERED: BACITRACIN OINT 15 GM TUBE ONE (15:42)
[2022-09-06] MEDS ORDERED: BUPIVACAINE 0.5 % 5 MG/1 ML MPF 30ML VIAL ONE (15:42)
[2022-09-06] MEDS ORDERED: LIDOCAINE 1% LOCAL 20 ML VIAL ONE (15:43)
[2022-09-06] MEDS ORDERED: ROCURONIUM BROMIDE 10 MG/ML 5 ML VIAL IV ONE (15:48)
[2022-09-06] MEDS ORDERED: SUCCINYLCHOLINE CHLORIDE 20 MG/ML 10 ML VIAL IV ONE (15:48)
[2022-09-06] MEDS ORDERED: LIDOCAINE 2% MPF LOCAL 5 ML VIAL ONE (15:48)
[2022-09-06] MEDS ORDERED: DEXAMETHASONE SOD INJ 4 MG/ML VIAL ONE (15:48)
[2022-09-06] MEDS ORDERED: PROPOFOL IV EMULSION 10 MG/ML 20 ML VIAL IV ONE (15:48)
[2022-09-06] MEDS ORDERED: fentaNYL citrate PF 100 MCG/2 ML VIAL ONE ×2 (15:48→16:55)
[2022-09-06] MEDS ORDERED: ONDANSETRON INJ 2 MG/ML 2 ML VIAL ONE (15:48)
[2022-09-06] MEDS ORDERED: MIDAZOLAM HCL 1 MG/ML 2ML VIAL ONE (15:49)
[2022-09-06] MEDS ORDERED: diphenhydrAMINE 50 MG/ML VIAL ONE (16:32)
[2022-09-06] MEDS ORDERED: GLYCOPYRROLATE 0.2 MG/ML VIAL ONE ×2 (17:02→17:25)
[2022-09-06] MEDS ORDERED: ePHEDrine sulfate 50 MG/ML AMP ONE (17:02)
[2022-09-06] MEDS ORDERED: NEOSTIGMINE METHYLSULFATE 1 MG/ML 10ML VIAL ONE (17:25)
--- NOTE | 2022-09-06 17:31 | Post Operative Brief Note ---
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
--- NOTE | 2022-09-06 18:20 | Operative Report (OR) ---
PREOPERATIVE DIAGNOSIS: Acute appendicitis. POSTOPERATIVE DIAGNOSIS: Acute appendicitis. OPERATION: Laparoscopic appendectomy. SURGEON: Zoë Howard MD. ANESTHESIA: General. ESTIMATED BLOOD LOSS: About 10 mL FINDINGS: Enlarged and mild inflammation on the appendix, acute appendicitis. COMPLICATIONS: None. INDICATIONS FOR THE PROCEDURE: This is a 22-year-old female who presented to ED with 10-hour history of right lower quadrant pain, and patient had a CT scan diagnosis possible early acute appendicitis with the enlarged appendix and I recommended to do laparoscopic appendectomy, possible open. I did talk to the patient and the patient's mom about the benefit, risk, alternate procedure. I indicated the risks may include, but not limited to, such as bleeding, infection, injury to other organs, abscess, incisional hernia, bowel obstruction, if negative for appendicitis, still need to do appendectomy. The patient and the patient's mom understand, they agreed to proceed with procedure. The patient signed informed consent and I answered all questions. DETAILS OF PROCEDURE: After we identified the patient and verified the procedure, we brought the patient to the OR, put the patient in the supine position on the OR table. The patient received SCD on bilateral legs to prevent DVT. Also, patient received 2 grams cefoxitin IV for prophylactic antibiotic. The patient received general anesthesia without difficulty. The abdomen was prepped and draped in routine sterile fashion. After timeout, I injected the local anesthesia by using 1% lidocaine mixed with 0.5% Marcaine just above the umbilicus, then I made a small incision just above umbilicus, opened fascia, opened peritoneum. Under direct vision, put a Nico trocar in, connected to CO2 to create pneumoperitoneum, flow rate at 6 liters per minute, pressure not more than 14 mmHg. Once we got a nice pneumoperitoneum, we put a camera in, looked around the abdomen, it shows a normal finding on the small bowel and large bowel, pelvic area; however, the appendix shows enlarged with mild inflammation on the appendix. No perforation, confirmed diagnosis of early acute appendicitis. Once we confirmed the diagnosis, I put another two 5 mm trocars on the left lower quadrant area. Once all trocars in, we used the Harmonic to take down the appendiceal, rechecked, no active bleeding. Then, I used a 45 mm Endo-EDUARDO stapler for transection on the base of appendix, rechecked the staple line, intact and no active bleeding. Then, we removed the appendix through the catch bag. Then, we reinserted the Nico trocar in, connected to CO2 to create pneumoperitoneum, again looked around the abdomen, no active bleeding, staple line intact. Then, we removed all trocars under direct vision. No active bleeding from the trocar site. Pneumoperitoneum was released, then I closed the umbilical incision and fascial layer by using 2-0 Vicryl [id number] x2, closed subcutaneous layer by using 2-0 Vicryl interruptedly, closed skin by using 4-0 Vicryl continuous running, closed another two 5 mm trocar site of skin only by using 4-0 Vicryl. Then, we put the dressing on. The patient tolerated the procedure well. All instrument, needle and sponge counts were correct x2 at the end of the case. The patient was transferred to recovery room in stable condition. The specimen was sent to pathology. After the procedure, I did talk to the patient and patient's family member about the OR finding and the procedure we did, they understand. Job ID: [id number] [facility]
--- NOTE | 2022-09-06 18:27 | Anesthesiology Progress Note ---
Date of Service September 06, 2022 Anesthesia Post Procedure Vital Signs Vital Signs: Temp Pulse Pulse Pulse Resp BP BP 09/06/22 18:20 61 14 118/53 L 09/06/22 17:55 89 19 128/55 L 09/06/22 18:05 36.9 C 67 17 126/63 09/06/22 17:45 77 12 131/59 L 09/06/22 17:38 36.3 C L 93 H 11 L 126/66 09/06/22 16:14 36.8 C 71 16 130/65 09/06/22 15:07 68 18 118/68 09/06/22 13:24 83 18 114/67 09/06/22 12:25 78 18 97/56 L 09/06/22 12:25 09/06/22 10:12 65 20 118/57 L 09/06/22 08:25 36.6 C 66 20 112/67 Pulse Ox O2 Del Method O2 Flow Rate 09/06/22 18:20 99 Room Air 09/06/22 17:55 100 Oxymask 3 09/06/22 18:05 100 Room Air 3 09/06/22 17:45 100 Oxymask 5 09/06/22 17:38 100 Oxymask 7 09/06/22 16:14 99 Room Air 09/06/22 15:07 96 Room Air 09/06/22 13:24 99 Room Air 09/06/22 12:25 98 Room Air 09/06/22 12:25 99 Room Air 09/06/22 10:12 98 Room Air 09/06/22 08:25 100 Room Air Pain Intensity Lower Abdomen: Pain Intensity: 2 Transfer of Care Handoff Completed per policy Notes Mental Status: alert / awake / arousable and participated in evaluation Patient Amnestic to Procedure: Yes Nausea / Vomiting: adequately controlled Pain: adequately controlled Airway Patency, RR, SpO2: stable & adequate BP & HR: stable & adequate Hydration State: stable & adequate Anesthetic Complications: no major complications apparent and Pt Satisfied with anesthetic care
[2022-09-06] MEDS ORDERED: OMALIZUMAB 75 MG/0.5 ML SQ SCH (20:01)
[2022-09-06] MEDS ORDERED: ALBUTEROL HFA 8 GM INHALER INH PRN (20:01)
[2022-09-06] MEDS ORDERED: HYDROmorphone INJ 0.5 MG/0.5 ML SYR IV PRN (20:01)
[2022-09-06] MEDS ORDERED: SERTRALINE HCL 50 MG TABLET PO SCH (21:00)
[2022-09-06] MEDS ORDERED: MONTELUKAST SODIUM 10 MG TABLET PO SCH (21:00)
[2022-09-06] MEDS: LACTATED RINGER'S 1,000 ML IV SCH (21:21)
[2022-09-07] MEDS: oxyCODONE/ACETAMINOPHEN 5mg/325mg TAB PO PRN ×3 (02:31→13:46)
[2022-09-07 06:40] LABS: Basophils # (auto) 0.03 K/uL (0-0.2); Basophils % (auto) 0.3 %; Hematocrit (blood only) 36.2 % (37.0-47.0); Hemoglobin 12.5 g/dl (12.0-16.0); Immature Granulocytes # (auto) 0.03 K/uL (0.01-0.20); Immature Granulocytes % (auto) 0.3 %; Lymphocytes % (auto) 12.9 %; Mean Corpuscular Hemoglobin 30.3 pg (25.0-34.0); Mean Corpuscular Hgb Conc 34.5 g/dL (32.0-36.0); Mean Corpuscular Volume 87.9 fL (80.0-100.0); Mean Platelet Volume 10.1 fL (9.4-12.4); Neutrophils # (auto) 7.78 K/uL (1.40-6.50); Neutrophils % (auto) 77.5 %; Platelet Count 204 K/uL (130-400); RDW Coefficient of Variation 12.5 % (11.5-14.5); RDW Standard Deviation 40.7 fL (36.4-46.3); Red Blood Count 4.12 M/uL (4.20-5.40); White Blood Count 10.04 K/ul (4.8-10.8)
--- NOTE | 2022-09-07 08:35 | Surgery Progress Note ---
Date of Service September 07, 2022 Assessment & Plan (1) Acute appendicitis: Plan: pt is a 22 year-old female who presents with 10 hours history lower and RLQ pain, IMP: RLQ pain, acute appendicitis, plan, base pt's H/P, albs and CT scan finding, I recommend to do laparoscopic appendectomy, possible open, D/W benefits, risks and alternatives of the surgery, the risks - infection, bleeding, injury other organs, abscess, negative appendicitis, still need do appendectomy, prevent confusion diagnosis next time, pt and her mother understood, they agreed with surgery, pt signed informed consent, I answered all questions, pre-op iv antibiotic, 09/07/2022 8:33 AM F/U S/P lap appy, POD 1 stable, some incision pain, no fever, tolerated diet, WBC 10,000. continue treatment. control incision pain, full liquid diet, may D/C home afternoon. OOB will F/U, Admission and Anticipated Discharge Date Admission Date: September 06, 2022 Subjective F/U S/P lap appy, POD 1 pt is stable, some incision pain, tolerated diet, no fever, Review of Systems Constitutional: as per Subjective / HPI Eyes: as per Subjective / HPI Respiratory: as per Subjective / HPI Cardiovascular: as per Subjective / HPI Gastrointestinal: as per Subjective / HPI Genitourinary: as per Subjective / HPI Neurologic: as per Subjective / HPI Psychiatric: as per Subjective / HPI Endocrine: as per Subjective / HPI Hematologic / Lymphatic: as per Subjective / HPI Physical Exam Constitutional: WD/WN, vitals as above Eyes: PERRL, conjunctivae normal, anicteric sclerae Neck: trachea midline, no thyromegaly Respiratory: normal respiratory effort, lungs clear to auscultation Cardiovascular: RRR, no murmur, no edema Gastrointestinal (Abdomen): mild tenderness at incision site, no rebound pain, no distend, BS +, all incisions intact, no redness, Musculoskeletal: no cyanosis or clubbing, extremities motor strength 5/5 Neurologic: patellar DTR's 2+ bilat, sensation intact Psychiatric: A+Ox3, euthymic affect Results & Data Vital Signs (Past 12 Hours) Vital Signs Temp Pulse Resp BP Pulse Ox O2 Del Method 09/07/22 07:23 36.4 C L 86 16 106/64 98 Room Air 09/07/22 03:04 36.4 C L 62 15 96/54 L 97 Room Air 09/06/22 22:49 36.4 C L 64 15 109/62 98 Room Air 09/06/22 21:53 36.3 C L 81 15 106/62 97 Room Air 09/06/22 20:45 36.9 C 91 H 16 112/58 L 95 Room Air Laboratory Results Abnormal lab results 09/06/22 09/06/22 09/06/22 Range/Units 09:57 09:57 10:14 WBC 11.66 H (4.8-10.8) K/ul RBC (4.20-5.40) M/uL Hct (37.0-47.0) % Neut # (Auto) 10.00 H (1.40-6.50) K/uL Lymph # (Auto) 0.79 L (1.2-3.4) K/uL [place] # (Auto) 0.72 H (0.11-0.59) K/uL Glucose 102 H (70-99(Fasting)) mg/dl Urine Blood 2+ H (Negative) Ur Epithelial Cells 20-30 H (0-5) /lpf 09/07/22 Range/Units 05:36 WBC (4.8-10.8) K/ul RBC 4.12 L (4.20-5.40) M/uL Hct 36.2 L (37.0-47.0) % Neut # (Auto) 7.78 H (1.40-6.50) K/uL Lymph # (Auto) (1.2-3.4) K/uL [place] # (Auto) 0.90 H (0.11-0.59) K/uL Glucose (70-99(Fasting)) mg/dl Urine Blood (Negative) Ur Epithelial Cells (0-5) /lpf
[2022-09-07] MEDS ORDERED: LACTATED RINGER'S 1,000 ML IV SCH (08:45)
[2022-09-07] MEDS: LACTATED RINGER'S 1,000 ML IV SCH (08:47)
[2022-09-07] MEDS ORDERED: FEXOFENADINE 60 MG TAB PO SCH (09:00)
--- NOTE | 2022-09-07 13:17 | Surgery Progress Note ---
Date of Service September 07, 2022 Assessment & Plan (1) Acute appendicitis: Plan: pt is a 22 year-old female who presents with 10 hours history lower and RLQ pain, IMP: RLQ pain, acute appendicitis, plan, base pt's H/P, albs and CT scan finding, I recommend to do laparoscopic appendectomy, possible open, D/W benefits, risks and alternatives of the surgery, the risks - infection, bleeding, injury other organs, abscess, negative appendicitis, still need do appendectomy, prevent confusion diagnosis next time, pt and her mother understood, they agreed with surgery, pt signed informed consent, I answered all questions, pre-op iv antibiotic, 09/07/2022 8:33 AM F/U S/P lap appy, POD 1 stable, some incision pain, no fever, tolerated diet, WBC 10,000. continue treatment. control incision pain, full liquid diet, may D/C home afternoon. OOB will F/U, 09/07/2022 1:15Pm, recheck pt, pt is doing better, good control pain with percocet, pt and her mother want to go home today, D/C pt to home, the post-op care instruction was given, F/U me 2 weeks, Admission and Anticipated Discharge Date Admission Date: September 06, 2022 Subjective F/U S/P lap appy, POD 1 pt is stable, some incision pain, tolerated diet, no fever, 09/07/2022 1:12PM pt is doing better, good control pain with percocet. tolerated diet. Review of Systems Constitutional: as per Subjective / HPI Eyes: as per Subjective / HPI Respiratory: as per Subjective / HPI Cardiovascular: as per Subjective / HPI Gastrointestinal: as per Subjective / HPI Genitourinary: as per Subjective / HPI Neurologic: as per Subjective / HPI Psychiatric: as per Subjective / HPI Endocrine: as per Subjective / HPI Hematologic / Lymphatic: as per Subjective / HPI Physical Exam Constitutional: WD/WN, vitals as above Eyes: PERRL, conjunctivae normal, anicteric sclerae Neck: trachea midline, no thyromegaly Respiratory: normal respiratory effort, lungs clear to auscultation Cardiovascular: RRR, no murmur, no edema Gastrointestinal (Abdomen): soft, mild tenderness at umbilical incision site, no rebound pain, no distend, BS+, all incisions intact, no redness, Musculoskeletal: no cyanosis or clubbing, extremities motor strength 5/5 Neurologic: patellar DTR's 2+ bilat, sensation intact Psychiatric: A+Ox3, euthymic affect Results & Data Vital Signs (Past 12 Hours) Vital Signs Temp Pulse Resp BP Pulse Ox O2 Del Method 09/07/22 11:00 36.5 C 62 16 97/58 L 100 Room Air 09/07/22 07:23 36.4 C L 86 16 106/64 98 Room Air 09/07/22 03:04 36.4 C L 62 15 96/54 L 97 Room Air
--- NOTE | 2022-09-08 02:00 | Discharge Summary (DS) ---
DATE OF ADMISSION: 09/06/2022. DATE OF DISCHARGE: 09/07/2022. ADMISSION DIAGNOSIS: Acute appendicitis DISCHARGE DIAGNOSIS: Acute appendicitis. OPERATION: Laparoscopic appendectomy. SURGEON: Zoë Howard MD. DETAILS OF DISCHARGE SUMMARY: This is a 22-year-old female who presented to the ED with low and right lower quadrant pain. The patient had a CT scan diagnosis of possible early appendicitis, enlarged appendix. I recommended to do laparoscopic appendectomy. We took the patient to the OR yesterday. In the OR, we did laparoscopic appendectomy. In the OR finding the patient had early acute appendicitis with enlarged appendix with inflammation around the appendix. The patient tolerated the procedure well. After the procedure, the patient doing fine and the patient tolerated diet. No nausea, no vomiting, no fever and could comfort pain with Percocet. PHYSICAL EXAMINATION: VITAL SIGNS: Temperature is 36.5, respiratory rate is 16, heart rate 62, blood pressure 97/58, O2 saturation 100% on room air. GENERAL: The patient is alert, awake, oriented x3. HEENT: Within normal limitation. NEUROLOGIC: Intact. NECK: No JVD. CHEST: Bilateral lung sounds clear. HEART: Normal S1 and S2. No murmur. ABDOMEN: Soft, nondistended, mild tenderness on the incision site. No rebound pain. Bowel sounds positive. All incision sites are intact. No redness. EXTREMITIES: No edema. The patient wanted to go home today and I gave the patient postoperative care instruction and the patient understands. I will follow up the patient in 2 weeks. Job ID: [id number] [facility]
== END 2022-09-07 15:53 | disposition home or self-care (01) ==
LOC: ED 08:13 → INTOOBSV 17:39 → 3E 17:39